=== PATIENT | male | born 1955 | race Caucasian/White ===

== ENCOUNTER 2018-07-29 14:47 | Emergency (ER) | payer BC ==
--- NOTE | 2018-07-29 15:17 | PDOC ---
History of Present Illness - General Chief Complaint: Injury Stated Complaint: RT EAR LACERATION Time Seen by Provider: 07/29/18 14:50 - History of Present Illness Initial Comments: The patient is a 63M who presents for a right ear laceration/avulsion / bune latch. The patient reports that the injury occurred just [employer]. He endorses minimal blood loss. He denies recent illness, previous procedure to his R ear. Denies recent fevers, change in hearing, denies smoking, and is not currently taking any blood thinners. 07/29/18 15:17 Past History - Past Medical History Allergies/Adverse Reactions: Allergies Allergy/AdvReac Type Severity Reaction Status Date / Time aloe vera Allergy Severe Rash Verified 07/29/18 14:50 silver sulfadiazine Allergy Verified 07/29/18 14:50 [From Silvadene] Home Medications: Ambulatory Orders Doxycycline Hyclate 100 mg PO BID 7 Days #14 tablet 07/29/18 Anemia: No Asthma: No Cancer: No Cardiac Disorders: No CVA: No COPD: No CHF: No Dementia: No Diabetes: No GI Disorders: No Disorders: No HTN: No Hypercholesterolemia: No Liver Disease: No Seizures: No Thyroid Disease: No - Surgical History Abdominal Surgery: No Appendectomy: No Cardiac Surgery: No Cholecystectomy: No Lung Surgery: No Neurologic Surgery: No Orthopedic Surgery: Yes (NAIL BED RIGHT THUMB REMOVED 2008) - Suicide/Smoking/Psychosocial Hx Smoking History: Never smoked Have you smoked in the past 12 months: No Hx Alcohol Use: No Drug/Substance Use Hx: No Substance Use Type: None Hx Substance Use Treatment: No Review of Systems - Review of Systems Able to Perform ROS?: Yes Comments:: GENERAL/CONSTITUTIONAL: No fever or chills HEAD, EYES, EARS, NOSE AND THROAT: No change in vision. No sore throat CARDIOVASCULAR: No chest pain or shortness of breath RESPIRATORY: No cough, wheezing GASTROINTESTINAL: No nausea, vomiting, diarrhea GENITOURINARY: No dysuria, frequency SKIN: per HPI NEUROLOGIC: No headache, loss of consciousness, or change in strength/sensation ENDOCRINE: No increased thirst. No abnormal weight change HEMATOLOGIC/LYMPHATIC: No history of blood clots ALLERGIC/IMMUNOLOGIC: No skin allergy 07/29/18 16:59 Is the patient limited Lao proficient: No *Physical Exam - Vital Signs 07/29/18 17:00 Vital Signs Temp Pulse Resp BP Pulse Ox 98.4 F 94 H 18 155/96 96 07/29/18 15:00 07/29/18 15:00 07/29/18 15:00 07/29/18 15:00 07/29/18 15:00 - Physical Exam Comments: General Appearance: Laying comfortably in bed, good color, and in no acute distress HEENT: R ear pinna laceration/avulsion 1cm x 0.5 cm. PERRL, EOMI, no ocular erythema or scleral icterus. Nares patent without discharge. MMM. Lungs: Unlabored respirations on room air with symmetric chest rise Heart: Regular rate and regular rhythm Abdomen: soft, NTTP, non-distended Musculoskeletal: No obvious deformity. Moves all 4 extremities Neurologic: Alert/appropriate, normal strength, normal tone, and CN II-XII grossly intact. Clear speech, aao x 3. 07/29/18 17:00 Medical Decision Making - Medical Decision Making The patient is a 63M who presents for evaluation for a R ear laceration/avulsion ED Course Laceration repaired by Dr. Warner. For full details, see procedure note. Doxycycline 100mg PO once here; Doxycycline 100mg BID for 7 days for ppx Naproxen 375mg PO once for pain Wound care and f/u instructions given Return precautions given Plan for D/C and Plastics f/u Patient verbalized understanding and is in agreement Dispo Home 07/29/18 17:02 *DC/Admit/Observation/Transfer Diagnosis at time of Disposition: Laceration of ear drum, right Qualifiers: Encounter type: initial encounter Qualified Code(s): S09.21XA - Traumatic rupture of right ear drum, initial encounter - Discharge Dispostion Disposition: HOME Condition at time of disposition: Improved Decision to Admit order: No - Prescriptions Prescriptions: Doxycycline Hyclate 100 mg PO BID 7 Days #14 tablet - Referrals Referrals: Ray Mena MD [Staff Physician] - - Patient Instructions Printed Discharge Instructions: DI for Laceration Repair Additional Instructions: You were seen in the Emergency Room today for a laceration to the right ear which was sutured closed. Be sure to wash the wound every day with soap and running water. Pat dry. You may place dressing if needed. Be sure to follow up with Dr. Mena this week. Return to the Emergency Room if you develop fevers, worsening pain, purulent drainage, worsening erythema, or any new/concerning symptoms - Post Discharge Activity
[2018-07-29 15:49] VITALS: BP 155/96; PULSE 94; TEMP 98.4; BMI 28.7
[2018-07-29] MEDS ORDERED: LIDOCAINE HCL 2% (20ML MULTI-DOSE VIAL) NR ONE (15:50)
[2018-07-29] MEDS ORDERED: LIDOCAINE HCL 2% (50ML VIAL) INF ONE (15:50)
[2018-07-29] MEDS ORDERED: DOXYCYCLINE HYCLATE 100 MG CAPSULE PO ONE ×3 (16:44→16:47)
[2018-07-29] MEDS ORDERED: NAPROXEN 375 MG TABLET (FP) ONE (16:47)
[2018-07-29] MEDS ORDERED: NAPROXEN 375 MG TABLET (FP) PO ONE (16:47)
--- NOTE | 2018-07-29 16:48 | PDOC ---
Attending Attestation - Resident Resident Name: Lenard Mercado - ED Attending Attestation I have performed the following: I have examined & evaluated the patient, The case was reviewed & discussed with the resident, I agree w/resident's findings & plan - HPI HPI: 07/29/18 16:43 Patient is a 63-year-old man who was bending over and caught his ear on a bungee cord at home. He sustained a complex laceration of the right ear. His tetanus is up to date 2 years ago. - Physicial Exam PE: 07/29/18 16:45 Right ear with complex stellate lacerations of the helix and antihelix with a flap attached at the helix. Appears clean with no signs of infection. - Medical Decision Making 07/29/18 16:46 Laceration repair: Wound cleansed with chlorhexidine. Ring block performed of the ear with 2% lidocaine and bicarbonate. Normal saline high pressure high volume lavage. 5-0 nylon sutures placed 9. Ear again irrigated with sterile saline. Bacitracin and Xeroform dressing placed. Doxycycline 100 mg by mouth for prophylaxis of infection given. Discussed care with Dr. Luis Mena who will see the patient in follow-up on Tuesday.
== END 2018-07-29 17:05 | disposition home or self-care (01) ==
LOC: FER 14:47
PROC: 0HQ2XZZ Repair Right Ear Skin, External Approach (ICD-10-PCS; principal; 2018-07-29)
DX: S01.311A Laceration without foreign body of right ear, initial encounter (principal); X58.XXXA Exposure to other specified factors, initial encounter; Y93.89 Activity, other specified; Y92.9 Unspecified place or not applicable
CPT/HCPCS: 99283-25